=== PATIENT | male | born 2000 | race African-American/Black ===

== ENCOUNTER 2022-07-27 01:25 | Emergency (ER) | payer OTHER ==
[~2022-07-27] VITALS: Ht 182.9 cm; Wt 79.4 kg
--- NOTE | 2022-07-27 01:46 | NUR ---
Patient walked into ER c/o of abd pain that has worsened the last 3 days. Patient c/o abd spasms and cramping. Patient reports having nausea, denies vomiting and unable to sleep due to pain. Patient states being on antibiotic regimen that started 2 weeks ago due to Hx H.Pylori.
[2022-07-27] MEDS ORDERED: ONDANSETRON ODT 4 MG TAB.RAPDIS SL ONE (02:00)
[2022-07-27] MEDS ORDERED: MAG HYDROX/AL HYDROX/SIMETH 30 ML LIQUID UDC PO ONE (02:00)
[2022-07-27] MEDS ORDERED: LIDOCAINE VISCUS 2% 15 ML UDC MM ONE (02:00)
[2022-07-27] MEDS ORDERED: DICYCLOMINE HCL LIQ 10 MG/5 ML UDC PO ONE (02:00)
[2022-07-27 02:05] LABS: HEMATOCRIT 46.8 % (36.7-47.1); MEAN CORPUSCULAR HEMOGLOBIN 28.5 uug (23.8-33.4); MEAN CORPUSCULAR VOLUME 85.1 fL (73.0-96.2); PLATELET COUNT (AUTO) 252 K/uL (152-348)
[2022-07-27] MEDS ORDERED: DICYCLOMINE HCL LIQ 10 MG/5 ML UDC ONE (02:14)
[2022-07-27] MEDS ORDERED: MAG HYDROX/AL HYDROX/SIMETH 30 ML LIQUID UDC ONE (02:15)
[2022-07-27] MEDS ORDERED: LIDOCAINE VISCUS 2% 15 ML UDC ONE (02:15)
[2022-07-27] MEDS ORDERED: ONDANSETRON ODT 4 MG TAB.RAPDIS ONE (02:15)
[2022-07-27 02:23] LABS: BILIRUBIN,DIRECT 0.2 mg/dL (0.0-0.2); BILIRUBIN,TOTAL 0.9 mg/dL (0.2-1.0); CREATININE 1.2 mg/dL (0.6-1.3); POTASSIUM 3.3 mmol/L (3.5-5.1); TOTAL PROTEIN, SERUM 8.1 g/dL (6.4-8.2)
--- NOTE | 2022-07-27 02:55 | NUR ---
Xray at bedside
--- NOTE | 2022-07-27 03:38 | NUR ---
Urine sample sent to lab
[2022-07-27 03:47] LABS: *BILIRUBIN,URIN NEGATIVE (NEGATIVE); *BLOOD, URINE NEGATIVE (NEGATIVE); *CLARITY,URINE CLEAR (CLEAR); *COLOR,URINE YELLOW (YELLOW); *KETONES,URINE TRACE (NEGATIVE); *UROBILINOGEN,URINE 0.2 E.U./dl (NORMAL); LEUKOCYTE ESTERASE ,URINE NEGATIVE (NEGATIVE); NITRITE, URINE NEGATIVE (NEGATIVE); PH,URINE 6.5 (5.0-8.0); UGLUCOSE NEGATIVE (NEGATIVE)
--- NOTE | 2022-07-27 06:38 | NUR ---
Ultrasound at bedside.
[2022-07-27] MEDS ORDERED: POTASSIUM CHLORIDE 20 MEQ TAB.PRT.SR PO ONE (06:45)
[2022-07-27] MEDS ORDERED: POTASSIUM CHLORIDE 20 MEQ TAB.PRT.SR ONE (06:48)
--- NOTE | 2022-07-27 07:07 | NUR ---
Report given to Aminah DIA
--- NOTE | 2022-07-27 07:20 | NUR ---
Received patient resting in bed, easily arousable. No complaints at this time. No acute distress at the moment. Will continue to monitor patient.
--- NOTE | 2022-07-27 07:45 | NUR ---
Patient discharged to home in stable condition. Written and verbal after care instructions given. Patient verbalizes understanding of instructions. Stressed follow up or return to ER for worsening s/s.
[2022-07-27 07:53] VITALS: BP 128/81
== END 2022-07-27 07:54 | disposition home or self-care (01) ==
LOC: ER 01:34
DX: R10.10 Upper abdominal pain, unspecified (principal); E87.6 Hypokalemia
CPT/HCPCS: 36415; 71045; 83690; 84484; 85025; 93005; A4663; Q0162